=== PATIENT | female | born 1945 | race Caucasian/White ===

== ENCOUNTER 2016-12-24 19:44 | Emergency (ER) | payer OTHER, MEDICAID ==
[2016-12-24 21:47] VITALS: BP 141/82
== END 2016-12-24 21:47 | disposition home or self-care (01) ==
LOC: ED 19:44
DX: S49.91XA Unspecified injury of right shoulder and upper arm, initial encounter (principal); I10 Essential (primary) hypertension; E78.5 Hyperlipidemia, unspecified; W17.89XA Other fall from one level to another, initial encounter; Y99.8 Other external cause status; Y93.89 Activity, other specified; Y92.89 Other specified places as the place of occurrence of the external cause
CPT/HCPCS: J3010